=== PATIENT | male | born 1965 | race Caucasian/White ===

== ENCOUNTER → 2023-09-30 | Outpatient (CLI) | payer OTHER | LOC: M PLARAD 14:29 | PROVIDERS: ATTEND Chiropractor | DX: M54.42 Lumbago with sciatica, left side (principal); M99.03 Segmental and somatic dysfunction of lumbar region; M50.33 Other cervical disc degeneration, cervicothoracic region; M99.01 Segmental and somatic dysfunction of cervical region; M47.816 Spondylosis without myelopathy or radiculopathy, lumbar region; M48.061 Spinal stenosis, lumbar region without neurogenic claudication; M51.36 Other intervertebral disc degeneration, lumbar region ==

== ENCOUNTER → 2023-10-19 | Outpatient (CLI) | payer OTHER | LOC: M PLAIMG 07:44 | PROVIDERS: ATTEND Chiropractor | DX: M54.42 Lumbago with sciatica, left side (principal); M99.03 Segmental and somatic dysfunction of lumbar region; M16.12 Unilateral primary osteoarthritis, left hip; M87.052 Idiopathic aseptic necrosis of left femur ==